=== PATIENT | male | born 1940 | race Caucasian/White ===

== ENCOUNTER 2019-10-22 11:34 | Emergency (ER) | payer MEDICARE ==
[~2019-10-22] VITALS: Ht 167.6 cm; Wt 61.2 kg
[2019-10-22 11:40] VITALS: Ht 167.6 cm; Wt 61.2 kg
[2019-10-22 13:24] LABS: BASOPHIL % 0.3 % (0-2); PLATELET COUNT 225 x10^3mcL (130-400)
[2019-10-22 13:28] LABS: RED CELL DISTRIBUTION WIDTH 18.1 % (11.5-14.5)
[2019-10-22 13:40] VITALS: BP 34/16
[2019-10-22 13:40] LABS: CALCIUM 8.9 mg/dL (8.5-10.1); CHLORIDE SERUM 103 mmol/L (98-107); CREATININE SERUM 0.9 mg/dL (0.7-1.3); GLUCOSE SERUM 114 mg/dL (74-106); POTASSIUM SERUM 3.8 mmol/L (3.5-5.1); SODIUM SERUM 138 mmol/L (136-145)
[2019-10-22 13:58] LABS: ALBUMIN 2.9 g/dL (3.4-5.0); ALKALINE PHOSPHATASE 138 U/L (46-116); ALT/SGPT 20 U/L (16-63); AST/SGOT 18 U/L (15-37); BILIRUBIN TOTAL 0.5 mg/dL (0.20-1.00); CHOLESTEROL 120 mg/dL (<200); HDL CHOLESTEROL 28 mg/dL (40-60); LIPASE 84 IU/L (73-393); TOTAL PROTEIN, SERUM 7.5 g/dL (6.4-8.2)
[2019-10-22 14:22] LABS: microscopic required? YES; urine erythrocyte 3+ (NEGATIVE)
[2019-10-22 14:50] LABS: AMPHETAMINE QUAL UR NONE DETECTED (See below)
[2019-10-22 15:30] VITALS: BP 76/26
== END 2019-10-22 20:58 | disposition expired ==
LOC: ED 11:34
PROVIDERS: Emergency Medicine
DX: I46.9 Cardiac arrest, cause unspecified (principal); A41.9 Sepsis, unspecified organism; N39.0 Urinary tract infection, site not specified; R31.9 Hematuria, unspecified; D64.9 Anemia, unspecified; G82.50 Quadriplegia, unspecified; Z90.49 Acquired absence of other specified parts of digestive tract; I48.91 Unspecified atrial fibrillation
CPT/HCPCS: 82962; 87804; J0171; J1956; J3490; J7030; Q0092